=== PATIENT | male | born 1945 | race Two or more races ===

== ENCOUNTER 2025-02-27 18:01 | Emergency (ER) | payer OTHER, SELFPAY ==
[2025-02-27 18:03] VITALS: BMI 30.7
--- NOTE | 2025-02-27 18:29 | EKG_ITS ---
[facility] Test Date: 2025-02-27 Pat Name: MARGARITA DURHAM Department: Room: - Gender: Male Manager Event: : 1945 Requested By: Keagan Maynard Order Number: [id number] Reading MD: Keagan Maynard Measurements Intervals [place] Rate: 98 P: 9 NH: 154 QRS: -71 QRSD: 94 T: 26 QT: 327 QTc: 418 Interpretive Statements SINUS RHYTHM PATTERN CONSISTENT WITH PULMONARY DISEASE LEFT ANTERIOR FASCICULAR BLOCK [QRS AXIS <= -45, QR IN I, RS IN II] No previous ECG available for comparison /store/S0/[id number].pdf
[2025-02-27 19:13] VITALS: BP 145/87; PULSE 102; RESP 20; TEMP 37.2; O2SAT 95
--- NOTE | 2025-02-27 19:37 | XR_ITS ---
Examination: Chest PA single view Technique: Upright PA chest single view Exam date and time: February 27, 2025 1943 hrs. Comparison August 22, 2022 Indications: Weakness today. 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
--- NOTE | 2025-02-27 19:37 | XR_ITS ---
Examination: CT brain head without contrast. 2-D sagittal coronal reconstructions Date and time of exam:February 27, 2025 195 hrs. Comparison March 23, 2023 Indications: Onset dizziness weakness today CTDI: vol (mGy):55 DLP: (mGycm):1113 Technique: Multiple CT axial sections of the brain have been obtained, 5 mm slice thickness. Contrast has not been administered. 2-D sagittal, coronal reconstructions have been obtained Low dose protocols were performed. One or more of the following dose reduction techniques were used; automated exposure control, adjustment of the mA and/or KV according to patient size, use of iterative reconstruction technique. Findings: No significant ventricular enlargement. Intra-axial or extra-axial hemorrhage density is not seen. No mass effect or midline shift Basal cisterns are not remarkable. Fourth ventricle is midline. Cranial vault intact. Impression: Negative for acute hemorrhage, mass effect or midline shift
--- NOTE | 2025-02-27 19:37 | PD.EDRME ---
Rapid Medical Screening Exam [facility] Arrival date/time: 02/27/25 18:01 79M with history of HLD, TB and R eye surgery many years ago presents to ED with generalized weakness and dizziness starting around 2 AM today when he woke up and stated he couldn't sleep. Dizziness is only when he moves his head. Patient and deny slurred speech, blurry vision, N/V, and AMS. Of note, dilated R pupil is baseline for him. Chief Complaint: Dizziness Vital signs: Vital Signs Temperature 98.9 F 02/27/25 19:13 Pulse Rate 102 H 02/27/25 19:13 Respiratory Rate 20 02/27/25 19:13 Blood Pressure 145/87 H 02/27/25 19:13 Pulse Oximetry (%) 95 02/27/25 19:13 Oxygen Delivery Method Room Air 02/27/25 19:13
[2025-02-27 20:58] LABS: Basophils % (Auto) 0 % (0-2.5); Eosinophils % (Auto) 0 % (0-10); Hematocrit 46.5 % (41.0-53.0); Immature Granulocytes % (Auto) 1 % (0-0); Immature Granulocytes Auto 0.04 Thou/mm3 (0.00-0.00); Lymphocytes % (Auto) 12 % (10-50); Mean Corpuscular HGB Conc 36.6 g/dl (31.0-37.0); Mean Corpuscular Volume 85 fL (80-100); Monocytes # (Auto) 0.7 Thou/mm3 (0.0-0.8); Monocytes % (Auto) 8 % (0-12); Neutrophils # (Auto) 6.6 Thou/mm3 (1.8-7.7); Neutrophils % (Auto) 80 % (37-80); Nucleated Red Blood Cell % 0 /100 WBC (0); Platelet Count 143 Thou/mm3 (140-440); RDW Standard Deviation 41.9 fL (35.1-43.9); Red Blood Count 5.49 Miln/mm3 (4.50-5.90); White Blood Count 8.3 Thou/mm3 (3.8-10.6)
[2025-02-27 21:03] LABS: Collection Type, Urine Clean Catch
[2025-02-27 21:10] LABS: Alanine Aminotransferase 34 U/L (10-49); Albumin/Globulin Ratio 2.1 (1.2-2.2); Alkaline Phosphatase 98 U/L (46-116); Anion Gap 9 (7-16); Aspartate Amino Transferase 37 U/L (0-34); BUN/Creatinine Ratio 13 Ratio (12-20); Bilirubin,Total 1.9 mg/dL (0.3-1.2); Blood Urea Nitrogen 13 mg/dL (9-23); Calcium 9.7 mg/dL (8.3-10.6); Calcium (Corrected) 9.7 mg/dL (8.5-10.1); Carbon Dioxide 26.6 mMol/L (20.0-31.0); Chloride 97 mMol/L (98-107); Estimated Creatinine Clearance 60.7 mL/min (>60); Globulin 2.4 gm/dL (2.3-3.5); Glucose 113 mg/dL (74-106); Magnesium 1.8 mg/dL (1.6-2.6); Osmolality,Calculated 267 (275-295); Potassium 3.8 mMol/L (3.4-5.1); Sodium 133 mMol/L (136-145); Total Protein 7.4 gm/dL (5.7-8.2); Troponin I < 0.020 ng/mL (0.0-0.045); eGFR > 60 See Note
[2025-02-27 21:13] LABS: Bacteria,Urine 2+; Bilirubin,Urine Negative (Negative); Blood,Urine Negative (Negative); Clarity,Urine Clear (Clear/Hazy); Color,Urine Yellow (Lt Yel-Yel); Glucose, Urine Negative (Negative); Ketones,Urine Trace (Negative); Leukocyte Esterase,Urine Positive (Negative); Nitrite,Urine Positive (Negative); Protein,Urine 1+ (Neg - Trace); RBC,Urine 5 /hpf (0-3); Specific Gravity,Urine 1.022 (1.001-1.035); Squamous Epithelial Cell,Urine < 1 /hpf (0-5); Urobilinogen,Urine Negative mg/dL (0.0-1.0); WBC,Urine 30 /hpf (0-5)
--- NOTE | 2025-02-27 23:20 | PD.EDDIZZY ---
ED Dizzyness RME/HPI General Chief Complaint: Dizziness Stated Complaint: FEELS DIZZY, WEAK X 0200AM Arrival date/time: 02/27/25 18:01 RME / HPI RME / HPI Narrative: 02/27/25 18:01 79M with history of HLD, TB and R eye surgery many years ago presents to ED with generalized weakness and dizziness starting around 2 AM today when he woke up and stated he couldn't sleep. Dizziness is only when he moves his head. Patient and deny slurred speech, blurry vision, N/V, and AMS. Of note, dilated R pupil is baseline for him. Dr. Wisdom?s Main ED Evaluation: 79yo male with a history of HLD presents to the ED for a chief complaint of dizziness x 0200. Patient states his dizziness feels worse when he stands up, reporting he feels like he's going to fall down. Patient reports having a decreased appetite. Patient denies any N/V, tingling, numbness, slurred speech, facial droop or any other associated symptoms. No known allergies. Related Data Home Medications ?Medication ?Instructions ?Recorded ?Confirmed lovastatin 20 mg tablet 20 mg PO QPM 09/01/20 03/29/22 ethambutol 400 mg tablet PO 03/29/22 03/29/22 isoniazid 300 mg tablet 300 mg PO QDAY 03/29/22 03/29/22 rifampin 300 mg capsule 300 mg PO QDAY 03/29/22 03/29/22 Previous Rx's ?Medication ?Instructions ?Recorded cefuroxime axetil 500 mg tablet 500 mg PO BID #14 tabs 07/29/23 doxycycline monohydrate 100 mg 100 mg PO BID Urinary tract 02/27/25 capsule infection 7 days #14 caps meclizine 25 mg tablet 25 mg PO TID Dizziness 7 days #21 02/27/25 tabs Allergies Allergy/AdvReac Type Severity Reaction Status Date / Time No Known Allergies Allergy Verified 02/27/25 18:04 Review of Systems Review of Systems Systems Reviewed: All systems reviewed, normal except as documented Past Medical History Past Medical History CARDIAC: Negative Congestive Heart Failure RESPIRATORY: Negative Chronic Obstructive Pulmonary Disease (COPD) GENITOURINARY: Negative Renal Disease ENDOCRINE: Negative Diabetes Mellitus Type 1 or Diabetes Mellitus Type 2 Social History SMOKING STATUS: Never smoker ED Exam Narrative Physical exam: GENERAL APPEARANCE: alert and oriented x 4, well-developed, well-nourished, no acute distress VITALS: All vitals were reviewed and the pulse ox is 95% on room air, which is normal according to my interpretation. HEENT: Normocephalic, atraumatic; pupils equal, round, reactive to light; left horizontal nystagmus, EOMI; mucous membranes pink, moist; oropharynx clear NECK: Supple LUNGS: CTABL; no wheezes, no rales, no rhonchi HEART: Regular rate, regular rhythm; normal S1, S2; no murmurs ABDOMEN: non distended; normal BS; soft, no tenderness, no guarding, no rebound; no masses, no organomegaly, no hernia BACK: no CVA tenderness EXTREMITIES: atraumatic; no edema NEUROLOGIC: awake; alert and oriented x4; cranial nerves II-XII grossly intact; no focal sensory or motor deficits; no intention tremor, steccato speech, dysmetria or dysdiadochokinesia PSYCHIATRIC: appropriate mood and affect SKIN: warm, dry, normal color; no rashes Course Course Course Narrative: CXR is ordered for determining the etiology of dizziness. Quality Measures none Orders Category Date Time Status Blood glucose [Bedside Blood Glucose] NOW Care 02/27/25 18:29 Active EKG (ED ONLY) *Do not use* NOW Care 02/27/25 18:[address] head/brain wo con Stat Exams 02/27/25 19:37 Completed EKG (ED Only) Stat Exams 02/27/25 18:29 Draft XR chest 1V portable Stat Exams 02/27/25 19:37 Completed CBC Stat Lab 02/27/25 19:52 Completed Comprehensive Metabolic Panel Stat Lab 02/27/25 19:52 Completed Magnesium Stat Lab 02/27/25 19:52 Completed Troponin I Stat Lab 02/27/25 19:52 Completed Urinalysis Stat Lab 02/27/25 20:38 Completed Doxycycline [Vibramycin] Med 02/27/25 23:31 Discontinued 100 mg PO X1 ONE Meclizine HCl [Antivert] Med 02/27/25 23:31 Discontinued 25 mg PO X1 ONE Vital Signs Vital signs: Vital Signs Temperature 98.9 F 02/27/25 19:13 Pulse Rate 102 H 02/27/25 19:13 Respiratory Rate 20 02/27/25 19:13 Blood Pressure 145/87 H 02/27/25 19:13 Pulse Oximetry (%) 95 02/27/25 19:13 Oxygen Delivery Method Room Air 02/27/25 19:13 Dizziness MDM Narrative MDM Narrative:: Scribe Attestation: 02/27/25 - Zhane Smallwood, am scribing for and in the presence of Dr. Wisdom. Patient data External records reviewed:: [facility] previous records (Per chart review, patient was seen here on 07/29/23 for UTI.) Clinical information provided by:: patient Social determinants that could affect healthcare access:: none Patient has the following chronic illnesses:: HLD How is presenting disease/condition affected by chronic disease/condition?: uneffected by Evaluation data The following diagnostics were reviewed and interpreted by me:: lab results, radiology exam(s) and EKG tracing(s) Lab and/or radiology exams considered but not ordered:: none Interpretation Summary: CBC is normal, Creatinine is normal, Electrolytes are normal, UA is positive for a UTI, according to my interpretation. CXR shows chronic changes, normal sharp diaphragmatic edge, no infiltrates, normal costophrenic angles, according to my interpretation. EKG done at 1916, NSR, rate of 98, left axis deviation, no ectopy, no acute ischemia, according to my interpretation. [facility] Report Signed Patient: MARGARITA DURHAM. Record#: [id number] Birthdate: 1945 Age/Sex: 79 / M Location: [facility] Attending Dr: Ordering Physician: Keagan Maynard PA-C Date of Service: 02/27/25 Procedure(s): CT head/brain wo con Accession Number(s): [id number] cc: Armen Posey MD; Shivam Osorio MD; Keagan Maynard PA-C~ Examination: CT brain head without contrast. 2-D sagittal coronal reconstructions Date and time of exam:February 27, 2025 195 hrs. Comparison March 23, 2023 Indications: Onset dizziness weakness today CTDI: vol (mGy):55 DLP: (mGycm):1113 Technique: Multiple CT axial sections of the brain have been obtained, 5 mm slice thickness. Contrast has not been administered. 2-D sagittal, coronal reconstructions have been obtained Low dose protocols were performed. One or more of the following dose reduction techniques were used; automated exposure control, adjustment of the mA and/or KV according to patient size, use of iterative reconstruction technique. Findings: No significant ventricular enlargement. Intra-axial or extra-axial hemorrhage density is not seen. No mass effect or midline shift Basal cisterns are not remarkable. Fourth ventricle is midline. Cranial vault intact. Impression: Negative for acute hemorrhage, mass effect or midline shift Dictated By: Shivam Osorio MD Signed By: <Electronically signed by Shivam Osorio MD in [place]> 02/27/252042 Medications / Prescriptions Medications or Prescriptions considered but not ordered:: none Medication administrations:: Medication Administration History Discontinued Medications Doxycycline Hyclate (Doxycycline 100 Mg Tablet) 100 mg PO X1 ONE Stop: 02/27/25 23:32 Meclizine HCl (Meclizine Hcl 25 Mg Tablet) 25 mg PO X1 ONE Stop: 02/27/25 23:32 see above Consultations Consultation(s) initiated? (list below): No Diagnosis Dizziness Differential Diagnosis: other (peripheral vertigo, central vertigo, lightheadedness, infectious vs metabolic, electrolyte abnormality) Most likely diagnosis given after review of the tests above:: see clinical impression below Admission Indicated Admission indicated?: not indicated Explain why admission is indicated or not indicated:: Patient states he feels significantly better. Patient is stable to be discharged home. Admission Request Was there a request for admission?: No Disposition Plan Disposition Plan: Discharge Discharge Attestation Discharge Attestation: The patient and all family members were given an opportunity to ask questions and understood the discharge instructions. Discharge instructions specifically effects, indications for sooner follow up or return to the emergency department, and the expected course of current diagnosis. Patient condition: Stable Discharge Plan Plan Patient Disposition: HOME (Self Care) Disposition Comment: Stable for discharge home Patient condition on transfer: Stable Prescriptions/Referrals Prescriptions/Med Rec: New doxycycline monohydrate 100 mg capsule 100 mg PO BID 7 Days Qty: 14 0RF meclizine 25 mg tablet 25 mg PO TID 7 Days Qty: 21 0RF No Action lovastatin 20 mg tablet 20 mg PO QPM isoniazid 300 mg tablet 300 mg PO QDAY rifampin 300 mg capsule 300 mg PO QDAY ethambutol 400 mg tablet PO cefuroxime axetil 500 mg tablet 500 mg PO BID Qty: 14 0RF Referrals: Armen Posey MD [Primary Care Provider] - In 1 week Problem List Clinical Impression: Urinary tract infection, Dizziness Patient/Caregiver Discharge Instructions Discharge Activity: activity as tolerated Education Materials: Vertigo Medicine Tx, When to Use Antibiotics, ED Dizziness, Uncertain Cause, ED Bladder Infection, Male (Adult) Additional Instructions: Please return to the emergency department if you have any worsening or any further medical problems and we will help you. Otherwise you should follow-up with your primary care doctor within the next several days. I have called in 2 prescriptions for you to pear picker at your pharmacy. The first prescription is called meclizine. This is a medicine for dizziness. If you feel dizzy again you should take 1 of these pills and see if it helps. The other medicine is called doxycycline. This is your antibiotic for your urinary tract infection. You should take 1 pill twice per day for 7 full days. You should not stop taking this medicine correction through. Print Language: Wolof Stand Alone Forms: Karla Award Info., Patient Portal Info Letter
[2025-02-27] MEDS: MECLIZINE HCL 25 MG TABLET PO (23:45)
[2025-02-27] MEDS: DOXYCYCLINE 100 MG TABLET PO (23:45)
[2025-02-27 23:46] VITALS: BP 145/67; PULSE 89; RESP 18; TEMP 36.6; O2SAT 99
== END 2025-02-27 23:47 | disposition home or self-care (01) ==
PROVIDERS: Physician Assistant; Emergency Provider Emergency Medicine; PCP Family Medicine
DX: N39.0 Urinary tract infection, site not specified (principal); R42 Dizziness and giddiness; E78.5 Hyperlipidemia, unspecified
CPT/HCPCS: 36415; 70450; 71045; 80053; 81001; 83735; 84484; 85025; 93005; 99284; A9270